=== PATIENT | female | born 1970 | race Caucasian/White ===

== ENCOUNTER 2023-06-13 07:27 | Day surgery (SDC) | payer MEDICAID ==
[~2023-06-13] VITALS: Ht 157.5 cm; Wt 104.8 kg
[2023-06-13] MEDS ORDERED: MEPERIDINE 100 MG INJ. 100 MG/ML VIAL ONE (07:37)
[2023-06-13] MEDS ORDERED: MIDAZOLAM HCL 5 MG/5 ML VIAL ONE (07:37)
[2023-06-13 12:47] VITALS: O2SAT 96
[2023-06-13 13:45] VITALS: BP_SYST 125; PULSE 55; RESP 23
== END 2023-06-13 11:15 | disposition home or self-care (01) ==
LOC: SDS 07:27 → SMU 07:29 → SDS 11:15
PROVIDERS: ATTEND Internal Medicine Gastroenterology
DX: Z12.11 Encounter for screening for malignant neoplasm of colon (principal); K62.1 Rectal polyp; K63.5 Polyp of colon; K29.50 Unspecified chronic gastritis without bleeding; K29.80 Duodenitis without bleeding; K21.00 Gastro-esophageal reflux disease with esophagitis, without bleeding; K44.9 Diaphragmatic hernia without obstruction or gangrene; K64.8 Other hemorrhoids; R14.0 Abdominal distension (gaseous); K21.9 Gastro-esophageal reflux disease without esophagitis; E78.5 Hyperlipidemia, unspecified; F17.210 Nicotine dependence, cigarettes, uncomplicated; Z79.899 Other long term (current) drug therapy
CPT/HCPCS: 45385; 43239; 87081; 36415; 88305; 88312; 88313; 99153; 99152; G0378; J2250; J2175